=== PATIENT | male | born 1975 | race Caucasian/White ===

== ENCOUNTER 2024-06-21 11:43 | Emergency (ER) | payer OTHER ==
[~2024-06-21] VITALS: Ht 177.8 cm; Wt 86.4 kg
[2024-06-21 12:06] VITALS: TEMP 98.3
[2024-06-21 12:14] LABS: BASOPHILS % (AUTO) 1.2 % (0.0-2.0); EOSINOPHILS % (AUTO) 2.2 % (1.0-6.0); HEMATOCRIT 47.5 % (41-53); HEMOGLOBIN 16.2 g/dL (13.5-17.5); LYMPHOCYTES # (AUTO) 2.7 K/uL (1.0-4.8); LYMPHOCYTES % (AUTO) 35.3 % (22.0-44.0); MEAN CORPUSCULAR HEMOGLOBIN 32.6 pg (26.0-34.0); MEAN CORPUSCULAR VOLUME 96 fL (80-100); MONOCYTES % (AUTO) 13.1 % (2.0-9.0); NEUTROPHILS # (AUTO) 3.7 K/uL (1.8-7.7); NEUTROPHILS % (AUTO) 48.2 % (40.0-70.0); PLATELET COUNT (AUTO) 201 K/uL (150-450); RED BLOOD CELL COUNT(AUTO) 4.95 MIL/uL (4.50-5.90); RED CELL DISTRIBUTION WIDTH 13.2 % (11.5-14.5); WHITE BLOOD COUNT (AUTO) 7.6 K/uL (4.5-11.0)
[2024-06-21 12:24] LABS: ANION GAP 14 mmol/L (8-16); CALCIUM, TOTAL 8.4 mg/dL (8.8-10.5); CARBON DIOXIDE 20 mmol/L (22-29); CHLORIDE 100 mmol/L (98-107); CREATININE 0.63 mg/dL (0.60-1.30); GLOMERULAR FILTR. RATE CALC > 60 mL/min (>60); GLUCOSE,RANDOM 104 mg/dL (70-110); POTASSIUM 3.6 mmol/L (3.5-5.1); SODIUM SERUM 134 mmol/L (136-145); UREA NITROGEN, BLOOD 8 mg/dL (7-18)
[2024-06-21 12:34] LABS: TROPONIN I-HIGH SENSITIVITY 4 ng/L (<76)
[2024-06-21 12:55] LABS: ALCOHOL, BLOOD (SERUM) 220 mg/dL (0-10)
[2024-06-21 13:46] VITALS: BP 123/69; PULSE 60; RESP 18; O2SAT 96
== END 2024-06-21 13:55 ==
LOC: EMS 11:44
DX: Z02.89 Encounter for other administrative examinations (principal); T75.4XXA Electrocution, initial encounter; F20.9 Schizophrenia, unspecified; W86.8XXA Exposure to other electric current, initial encounter; Y93.89 Activity, other specified; Y92.89 Other specified places as the place of occurrence of the external cause; Y99.8 Other external cause status
CPT/HCPCS: 99284; 80048; 84484; 85025; 36415; 93005; G0480